=== PATIENT | male | born 1960 | race Caucasian/White ===

== ENCOUNTER 2019-06-04 17:57 | Emergency (ER) | payer OTHER ==
[~2019-06-04] VITALS: Ht 175.3 cm; Wt 74.8 kg
[~2019-06-04 17:57] MED LIST: AMPDEX15CR PO; Aspirin EC81 MG PO; BUDE10.22 INH; IBUP800 PO; LEVSOD75 PO; OMEP20ER PO; SENN187 PO; SUBOXONE 8 MG-1 EACH SL; TAMS.4ER PO; THERA1 EACH PO; TRAZ100 PO; VENLAFAXINE HCL75 MG PO; VITAMIN D31000 UNI1 PO; ZYRTEC10 M1 PO; Zofran4 MG PO
[2019-06-04 20:13] LABS: Alanine Aminotransfer (ALT/SGP 37 U/L (12-78); Albumin, Blood 4.1 g/dL (3.4-5.0); Albumin/Globulin Ratio 1.2 (0.8-1.8); Alk Phos 70 U/L (50-136); Anion Gap 9 mmol/L (6-16); Aspartate Aminotrans (AST/SGOT 52 U/L (12-37); Bilirubin, Total 0.9 mg/dL (0.1-1.0); Blood Urea Nitrogen 26 mg/dL (8-24); Bun/Creatinine Ratio 26.7 (12.0-20.0); CO2, Blood 24 mmol/L (21-32); Calcium, Blood 9.1 mg/dL (8.5-10.1); Chloride, Blood 105 mmol/L (98-108); Creatinine, Blood 0.98 mg/dL (0.60-1.20); Ethanol (Alcohol), Blood, Med <3 mg/dL; Globulin, Blood 3.4 g/dL (2.2-4.0); Glomerular Filtration Rate >60 (60-); Glucose, Blood 133 mg/dL (70-99); Potassium, Blood 4.1 mmol/L (3.5-5.5); Salicylate <1.7 mg/dL (2.8-20.0); Sodium, Blood 138 mmol/L (136-145); Total Protein, Blood 7.5 g/dL (6.4-8.2)
[2019-06-04 20:17] LABS: Acetaminophen, Random <2.0 ug/mL (10.0-30.0)
[2019-06-04 20:52] LABS: BASOPHILS ABSOLUTE AUTO 0.04 K/mm3 (0.00-0.23); BASOPHILS PERCENT AUTO 0 % (0-2); EOSINOPHILS ABSOLUTE AUTO 0.08 K/mm3 (0.00-0.68); EOSINOPHILS PERCENT AUTO 1 % (0-6); Hematocrit 44.1 % (37.0-53.0); Hemoglobin 14.5 g/dL (13.5-17.5); IMMATURE GRAN ABSOLUTE AUTO 0.05 K/mm3 (0.00-0.10); IMMATURE GRAN PERCENT AUTO 0 % (0-1); LYMPHOCYTES ABSOLUTE AUTO 4.11 K/mm3 (0.84-5.20); LYMPHOCYTES PERCENT AUTO 29 % (21-46); MONOCYTES PERCENT AUTO 10 % (4-13); Mean Corpuscular HGB Conc 32.9 g/dL (31.5-36.5); Mean Corpuscular Volume 91 fL (80-100); Mean Platelet Volume 10.8 fL (9.1-12.4); NEUTROPHILS ABSOLUTE AUTO 8.57 K/mm3 (1.96-9.15); NEUTROPHILS PERCENT AUTO 60 % (41-73); Platelet Count 208 K/mm3 (150-400); RDW Coefficient Variation 12.8 % (11.7-14.2); RDW Standard Deviation 42.3 fL (35.1-46.3); Red Blood Cell Count 4.83 M/mm3 (4.30-5.90); White Blood Cell Count 14.25 K/mm3 (4.00-11.30)
[2019-06-04 21:07] LABS: Source, Urine Clean Catch
[2019-06-04 21:09] LABS: Bilirubin, Urine Neg (Neg); Blood, Urine Neg (Neg); Glucose Qualitative, Urine Neg (Neg); Ketones, Urine 1+ (Neg); Leukocyte Esterase, Urine 1+ (Neg); Nitrite, Urine Neg (Neg); Protein, Urine 2+ (Neg); Urobilinogen, Urine 1+ (Normal)
[2019-06-04 21:15] LABS: U Amphetamine Screen DETECTED; U Barbituate Screen Not Detected; U Benzodiazapine Screen Not Detected; U Buprenorphine Screen DETECTED; U Cannabinoids Screen Not Detected; U Cocaine Screen Not Detected; U Methadone Screen Not Detected; U Methamphetamine Screen DETECTED; U Opiates Screen Not Detected; U Oxycodone Screen Not Detected; U Phencyclidine Screen Not Detected; U Propoxyphene Screen Not Detected
[2019-06-04 21:17] LABS: Appearance, Urine Clear (Clear); Color, Urine Yellow (P-Yellow)
[2019-06-04 21:19] LABS: Red Blood Cells, Urine Not Seen /hpf (0-2)
[2019-06-04 21:20] LABS: Squamous Epithelial Cells Rare /hpf (Few)
[2019-06-04 21:21] LABS: Bacteria Mod /hpf; Hyaline Casts 0-2 /lpf (0-2); Mucus Light (0-Heavy)
== END 2019-06-04 22:10 ==
LOC: ER 17:57
PROVIDERS: Physician Assistant
DX: R45.851 Suicidal ideations (principal); F41.9 Anxiety disorder, unspecified; F17.210 Nicotine dependence, cigarettes, uncomplicated; Z88.0 Allergy status to penicillin; Z91.013 Allergy to seafood; Z88.8 Allergy status to other drugs, medicaments and biological substances; Z79.899 Other long term (current) drug therapy
CPT/HCPCS: 36415; 80053; 81001; 84443; 85025; 99285; G0480

== ENCOUNTER 2019-07-11 03:20 | Inpatient (IN) | payer OTHER ==
[~2019-07-11] VITALS: Ht 175.3 cm; Wt 66.8 kg
[2019-07-11 04:31] LABS: BASOPHILS ABSOLUTE AUTO 0.02 K/mm3 (0.00-0.23); BASOPHILS PERCENT AUTO 0 % (0-2); EOSINOPHILS ABSOLUTE AUTO 0.08 K/mm3 (0.00-0.68); EOSINOPHILS PERCENT AUTO 1 % (0-6); Hematocrit 43.2 % (37.0-53.0); Hemoglobin 13.8 g/dL (13.5-17.5); IMMATURE GRAN ABSOLUTE AUTO 0.02 K/mm3 (0.00-0.10); IMMATURE GRAN PERCENT AUTO 0 % (0-1); LYMPHOCYTES ABSOLUTE AUTO 2.19 K/mm3 (0.84-5.20); LYMPHOCYTES PERCENT AUTO 26 % (21-46); MONOCYTES ABSOLUTE AUTO 0.62 K/mm3 (0.16-1.47); MONOCYTES PERCENT AUTO 7 % (4-13); Mean Corpuscular HGB 29.6 pg (26.0-34.0); Mean Corpuscular HGB Conc 31.9 g/dL (31.5-36.5); Mean Corpuscular Volume 93 fL (80-100); Mean Platelet Volume 10.8 fL (9.1-12.4); NEUTROPHILS ABSOLUTE AUTO 5.58 K/mm3 (1.96-9.15); NEUTROPHILS PERCENT AUTO 66 % (41-73); Platelet Count 129 K/mm3 (150-400); RDW Coefficient Variation 12.9 % (11.7-14.2); RDW Standard Deviation 43.8 fL (35.1-46.3); Red Blood Cell Count 4.66 M/mm3 (4.30-5.90); White Blood Cell Count 8.51 K/mm3 (4.00-11.30)
[2019-07-11 04:48] LABS: Alanine Aminotransfer (ALT/SGP 78 U/L (12-78); Albumin, Blood 3.3 g/dL (3.4-5.0); Alk Phos 54 U/L (50-136); Anion Gap 5 mmol/L (6-16); Aspartate Aminotrans (AST/SGOT 41 U/L (12-37); Bilirubin, Total 0.6 mg/dL (0.1-1.0); Blood Urea Nitrogen 15 mg/dL (8-24); Bun/Creatinine Ratio 19.4 (12.0-20.0); CO2, Blood 29 mmol/L (21-32); Calcium, Blood 8.6 mg/dL (8.5-10.1); Chloride, Blood 109 mmol/L (98-108); Creatinine, Blood 0.77 mg/dL (0.60-1.20); Globulin, Blood 3.3 g/dL (2.2-4.0); Glomerular Filtration Rate >60 (60-); Glucose, Blood 93 mg/dL (70-99); Potassium, Blood 3.6 mmol/L (3.5-5.5); Sodium, Blood 143 mmol/L (136-145); Total Protein, Blood 6.6 g/dL (6.4-8.2); Troponin I <0.015 ng/mL (0.000-0.040)
--- NOTE | 2019-07-11 13:09 | NUR ---
ADMISSION ASSESSMENT DONE UNDER SHIFT ASSESSMENT.
--- NOTE | 2019-07-11 17:51 | NUR ---
ALERT. ORIENTED. AMBULATORY W/STEADY GAIT TO BATHROOM. KNOWS TO USE URINAL FOR MEASUREMENT. STS FEELING BETTER FROM THIS A.M., BUT VERY ANXIOUS. POLITE. COOPERATIVE. TELE ON AND SHOWING SR. HAD ECHO. IV PATENT. NO ACUTE CHANGES. WCTM
--- NOTE | 2019-07-12 03:54 | NUR ---
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 On IV lasix and voids large amts of clear yellow urine. Smoking and substance abuse cessation encouraged. on Tele monitor sinus or bradycardia. Echo showed severe lt atrial dilation possible & ejection fx 55%. CXR showed intersitial pulmonary edema with bilat pleural effusions.
[2019-07-12 05:12] LABS: Anion Gap 4 mmol/L (6-16); Blood Urea Nitrogen 17 mg/dL (8-24); Bun/Creatinine Ratio 17.9 (12.0-20.0); CO2, Blood 33 mmol/L (21-32); Calcium, Blood 9.1 mg/dL (8.5-10.1); Chloride, Blood 106 mmol/L (98-108); Creatinine, Blood 0.95 mg/dL (0.60-1.20); Glomerular Filtration Rate >60 (60-); Glucose, Blood 103 mg/dL (70-99); Potassium, Blood 3.8 mmol/L (3.5-5.5); Sodium, Blood 143 mmol/L (136-145)
--- NOTE | 2019-07-12 19:03 | NUR ---
ALERT. ORIENTED. UNLABORED RESPIRATIONS. AMBULATED MULTIPLE TIMES IN HALLWAY , STEADY GAIT. PLEASANT. COOPERATIVE. TELE ON. NO ACUTE CHANGES. WCTM
--- NOTE | 2019-07-13 04:48 | NUR ---
PT ADMITTED WITH CHF AFTER RELAPSE ON METH PT SAYS HE HAD 4 YEARS SOBRITY PRIOR TO 3 DAYS OF METH USE. HE IS QUIET AND POLITE COOPERATIVE. [facility] PT HAS BEEN ON SUBOXONE TO TX ADDICTION. COOPERATIVE WITH MEDS AND TREATMENTS.
[2019-07-13] MEDS ORDERED: FURO40 PO (09:04)
[2019-07-13] MEDS ORDERED: VENL75ER PO (09:04)
--- NOTE | 2019-07-13 09:48 | NUR ---
SUMMARY/DISCHARGE PT DISCHARGED TO HOME, PT VERBALIZED UNDERSTANDING OF DISCHARGE INSTRUCTIONS WITH MEDICATIONS AND FOLLOW UP, PT TAKEN OUT SAFELY VIA WHEELCHAIR
== END 2019-07-13 09:38 | disposition home or self-care (01) | DRG 291 ==
LOC: ER 03:20 → MEDS 03:21 → ENPENDDIS 07-13 08:25 → MEDS 07-13 09:38
PROVIDERS: Emergency Medicine; ADMIT Internal Medicine
DX: I50.33 Acute on chronic diastolic (congestive) heart failure (principal); J96.01 Acute respiratory failure with hypoxia; C81.90 Hodgkin lymphoma, unspecified, unspecified site; K21.9 Gastro-esophageal reflux disease without esophagitis; J44.9 Chronic obstructive pulmonary disease, unspecified; F19.10 Other psychoactive substance abuse, uncomplicated; F43.10 Post-traumatic stress disorder, unspecified; E89.0 Postprocedural hypothyroidism; F17.210 Nicotine dependence, cigarettes, uncomplicated; F41.9 Anxiety disorder, unspecified
CPT/HCPCS: 36415; 71046; 80048; 80053; 83880; 84484; 85025; 93005; 93010; 93306; 94640; 94760; 96372; 96374; 96376; 98960; 99285-25; G0378; J1650; J1940

== ENCOUNTER 2019-08-24 21:18 | Observation (INO) | payer OTHER ==
[~2019-08-24] VITALS: Ht 175.3 cm; Wt 63.5 kg
[~2019-08-24 21:18] MED LIST changes: +FURO40 PO; +ONDA4ODT MM; +VENL75ER PO
[2019-08-24 22:03] LABS: Source, Urine Clean Catch
[2019-08-24 22:08] LABS: Bilirubin, Urine Neg (Neg); Blood, Urine Neg (Neg); Glucose Qualitative, Urine Neg (Neg); Ketones, Urine 3+ (Neg); Leukocyte Esterase, Urine Neg (Neg); Nitrite, Urine Neg (Neg); Protein, Urine Neg (Neg); Specific Gravity, Urine 1.015 (1.003-1.022); Urobilinogen, Urine NORM (Normal)
[2019-08-24 22:13] LABS: Appearance, Urine Clear (Clear); Color, Urine Yellow (P-Yellow)
[2019-08-24 22:26] LABS: U Amphetamine Screen DETECTED; U Barbituate Screen Not Detected; U Benzodiazapine Screen Not Detected; U Buprenorphine Screen Not Detected; U Cannabinoids Screen Not Detected; U Cocaine Screen Not Detected; U Methadone Screen Not Detected; U Methamphetamine Screen Not Detected; U Opiates Screen Not Detected; U Oxycodone Screen Not Detected; U Phencyclidine Screen Not Detected; U Propoxyphene Screen Not Detected
[2019-08-24 23:38] LABS: BASOPHILS ABSOLUTE AUTO 0.03 K/mm3 (0.00-0.23); BASOPHILS PERCENT AUTO 0 % (0-2); EOSINOPHILS PERCENT AUTO 0 % (0-6); Hematocrit 49.4 % (37.0-53.0); Hemoglobin 16.5 g/dL (13.5-17.5); IMMATURE GRAN ABSOLUTE AUTO 0.03 K/mm3 (0.00-0.10); IMMATURE GRAN PERCENT AUTO 0 % (0-1); LYMPHOCYTES ABSOLUTE AUTO 1.71 K/mm3 (0.84-5.20); LYMPHOCYTES PERCENT AUTO 14 % (21-46); MONOCYTES ABSOLUTE AUTO 0.33 K/mm3 (0.16-1.47); MONOCYTES PERCENT AUTO 3 % (4-13); Mean Corpuscular HGB 28.7 pg (26.0-34.0); Mean Corpuscular HGB Conc 33.4 g/dL (31.5-36.5); Mean Corpuscular Volume 86 fL (80-100); Mean Platelet Volume 10.9 fL (9.1-12.4); NEUTROPHILS ABSOLUTE AUTO 10.24 K/mm3 (1.96-9.15); NEUTROPHILS PERCENT AUTO 83 % (41-73); Platelet Count 188 K/mm3 (150-400); RDW Coefficient Variation 12.1 % (11.7-14.2); RDW Standard Deviation 38.4 fL (35.1-46.3); Red Blood Cell Count 5.74 M/mm3 (4.30-5.90); White Blood Cell Count 12.34 K/mm3 (4.00-11.30)
[2019-08-25 00:02] LABS: Ethanol (Alcohol), Blood, Med <3 mg/dL; Salicylate <1.7 mg/dL (2.8-20.0)
[2019-08-25 00:03] LABS: Alanine Aminotransfer (ALT/SGP 24 U/L (12-78); Albumin/Globulin Ratio 1.1 (0.8-1.8); Alk Phos 66 U/L (50-136); Anion Gap 8 mmol/L (6-16); Aspartate Aminotrans (AST/SGOT 24 U/L (12-37); Bilirubin, Total 0.7 mg/dL (0.1-1.0); Blood Urea Nitrogen 13 mg/dL (8-24); Bun/Creatinine Ratio 14.7 (12.0-20.0); CO2, Blood 29 mmol/L (21-32); Calcium, Blood 8.9 mg/dL (8.5-10.1); Chloride, Blood 103 mmol/L (98-108); Creatinine, Blood 0.89 mg/dL (0.60-1.20); Globulin, Blood 3.7 g/dL (2.2-4.0); Glomerular Filtration Rate >60 (60-); Glucose, Blood 124 mg/dL (70-99); Potassium, Blood 3.7 mmol/L (3.5-5.5); Sodium, Blood 140 mmol/L (136-145); Total Protein, Blood 7.7 g/dL (6.4-8.2)
[2019-08-25 00:07] LABS: Thyroid Stimulating Hormone 0.622 uIU/mL (0.360-4.800)
[2019-08-25 00:12] LABS: Acetaminophen, Random <2.0 ug/mL (10.0-30.0)
== END 2019-08-25 10:30 ==
LOC: ER 21:18 → EOR 21:19
PROVIDERS: ADMIT Emergency Medicine
DX: R45.851 Suicidal ideations (principal); F17.210 Nicotine dependence, cigarettes, uncomplicated; I50.9 Heart failure, unspecified; J44.9 Chronic obstructive pulmonary disease, unspecified; E03.9 Hypothyroidism, unspecified; F41.9 Anxiety disorder, unspecified; F43.10 Post-traumatic stress disorder, unspecified; F11.23 Opioid dependence with withdrawal; Z88.0 Allergy status to penicillin; Z88.8 Allergy status to other drugs, medicaments and biological substances; Z79.899 Other long term (current) drug therapy
CPT/HCPCS: 36415; 80053; 81003; 83690; 84443; 85025; 96374; 96375; 96376; 99285-25; G0378; G0480; J1630; J2405; J3010; Q3014

== ENCOUNTER 2020-10-06 23:28 | Inpatient (IN) | payer OTHER ==
[~2020-10-06] VITALS: Ht 175.3 cm; Wt 65.8 kg
[2020-10-07] MEDS ORDERED: SUBOXONE 8 MG-1 EACH SL (00:12)
[2020-10-07] MEDS ORDERED: TRAZ100 PO (00:12)
[2020-10-07] MEDS ORDERED: AMPDEX10CR PO (00:12)
[2020-10-07 01:14] LABS: BASOPHILS ABSOLUTE AUTO 0.03 K/mm3 (0.00-0.23); BASOPHILS PERCENT AUTO 0 % (0-2); EOSINOPHILS ABSOLUTE AUTO 0.09 K/mm3 (0.00-0.68); EOSINOPHILS PERCENT AUTO 1 % (0-6); Hematocrit 48.9 % (37.0-53.0); IMMATURE GRAN ABSOLUTE AUTO 0.06 K/mm3 (0.00-0.10); IMMATURE GRAN PERCENT AUTO 1 % (0-1); LYMPHOCYTES ABSOLUTE AUTO 1.96 K/mm3 (0.84-5.20); LYMPHOCYTES PERCENT AUTO 19 % (21-46); MONOCYTES ABSOLUTE AUTO 0.84 K/mm3 (0.16-1.47); MONOCYTES PERCENT AUTO 8 % (4-13); Mean Corpuscular HGB 28.8 pg (26.0-34.0); Mean Corpuscular HGB Conc 34.8 g/dL (31.5-36.5); Mean Corpuscular Volume 83 fL (80-100); Mean Platelet Volume 10.7 fL (9.1-12.4); NEUTROPHILS PERCENT AUTO 72 % (41-73); Platelet Count 194 K/mm3 (150-400); RDW Coefficient Variation 12.3 % (11.7-14.2); RDW Standard Deviation 37.4 fL (35.1-46.3); White Blood Cell Count 10.58 K/mm3 (4.00-11.30)
[2020-10-07 01:34] LABS: Alanine Aminotransfer (ALT/SGP 24 U/L (12-78); Albumin, Blood 4.2 g/dL (3.4-5.0); Albumin/Globulin Ratio 1.2 (0.8-1.8); Alk Phos 87 U/L (50-136); Anion Gap 6 mmol/L (6-16); Aspartate Aminotrans (AST/SGOT 22 U/L (12-37); Bilirubin, Total 0.9 mg/dL (0.1-1.0); Blood Urea Nitrogen 25 mg/dL (8-24); Bun/Creatinine Ratio 31.2 (12.0-20.0); CO2, Blood 29 mmol/L (21-32); Calcium, Blood 9.9 mg/dL (8.5-10.1); Chloride, Blood 103 mmol/L (98-108); Globulin, Blood 3.6 g/dL (2.2-4.0); Glomerular Filtration Rate >60 (60-); Glucose, Blood 140 mg/dL (70-99); Potassium, Blood 3.5 mmol/L (3.5-5.5); Sodium, Blood 138 mmol/L (136-145); Total Protein, Blood 7.8 g/dL (6.4-8.2)
[2020-10-07] MEDS ORDERED: TAMS.4ER PO (04:33)
--- NOTE | 2020-10-07 04:34 | NUR ---
PT ARRIVED TO FLOOR FROM ER. PT ALERT, ANXIOUS UPON ARRIVAL. PT REP ABD PAIN 3/10. ABD SOFT TO PALP, MILDLY DISTENDED, BT ACTIVE; PT REP TENDERNESS IN MID ABD. PT REP PREV EPISODES OF N/V. REP NO FLATUS RECENTLY, LAST BM 4-5 DAYS AGO. PT REP UNABLE TO DAMARI NGT, REQ NOT TO HAVE ANY FURTHER ATTEMPTS AT THIS TIME. PT ORIENTED TO ROOM/CALL LIGHT. DR GARCÍA IN ROOM TO ASSESS PT. WILL AWAIT ORDERS.
--- NOTE | 2020-10-07 07:27 | NUR ---
PT HAD NO CHANGES SINCE ARRIVING TO FLOOR. PT MED FOR PAIN AND NAUSEA X1. IVF STARTED THIS AM. PT NPO PER ORDERS. AWAITING SURGERY CONSULT.
--- NOTE | 2020-10-07 09:01 | NUR ---
PT IS SLEEPY, DENIES ANY NEED FOR PAIN MEDS AT THIS TIME, DENIES ANY NAUSEA, CONT. TO REFUSE NGT, AWAITING SURGICAL CONSULT, CONT. TO MONITOR FOR ANY CHANGES.
[2020-10-07 12:33] LABS: BASOPHILS ABSOLUTE AUTO 0.03 K/mm3 (0.00-0.23); BASOPHILS PERCENT AUTO 0 % (0-2); EOSINOPHILS ABSOLUTE AUTO 0.01 K/mm3 (0.00-0.68); EOSINOPHILS PERCENT AUTO 0 % (0-6); Hemoglobin 16.9 g/dL (13.5-17.5); IMMATURE GRAN ABSOLUTE AUTO 0.05 K/mm3 (0.00-0.10); IMMATURE GRAN PERCENT AUTO 0 % (0-1); LYMPHOCYTES ABSOLUTE AUTO 1.42 K/mm3 (0.84-5.20); LYMPHOCYTES PERCENT AUTO 11 % (21-46); MONOCYTES ABSOLUTE AUTO 0.53 K/mm3 (0.16-1.47); MONOCYTES PERCENT AUTO 4 % (4-13); Mean Corpuscular HGB 28.4 pg (26.0-34.0); Mean Corpuscular HGB Conc 34.5 g/dL (31.5-36.5); Mean Corpuscular Volume 82 fL (80-100); Mean Platelet Volume 10.7 fL (9.1-12.4); NEUTROPHILS ABSOLUTE AUTO 11.19 K/mm3 (1.96-9.15); NEUTROPHILS PERCENT AUTO 85 % (41-73); Platelet Count 167 K/mm3 (150-400); RDW Coefficient Variation 12.3 % (11.7-14.2); RDW Standard Deviation 37.4 fL (35.1-46.3); Red Blood Cell Count 5.96 M/mm3 (4.30-5.90); White Blood Cell Count 13.23 K/mm3 (4.00-11.30)
[2020-10-07 13:05] LABS: Alanine Aminotransfer (ALT/SGP 26 U/L (12-78); Albumin, Blood 3.8 g/dL (3.4-5.0); Albumin/Globulin Ratio 1.1 (0.8-1.8); Alk Phos 78 U/L (50-136); Anion Gap 7 mmol/L (6-16); Aspartate Aminotrans (AST/SGOT 27 U/L (12-37); Bilirubin, Total 0.8 mg/dL (0.1-1.0); Blood Urea Nitrogen 21 mg/dL (8-24); Bun/Creatinine Ratio 31.4 (12.0-20.0); CO2, Blood 26 mmol/L (21-32); Calcium, Blood 8.6 mg/dL (8.5-10.1); Chloride, Blood 105 mmol/L (98-108); Creatinine, Blood 0.67 mg/dL (0.60-1.20); Globulin, Blood 3.4 g/dL (2.2-4.0); Glomerular Filtration Rate >60 (60-); Glucose, Blood 130 mg/dL (70-99); Potassium, Blood 3.6 mmol/L (3.5-5.5); Sodium, Blood 138 mmol/L (136-145); Total Protein, Blood 7.2 g/dL (6.4-8.2)
[2020-10-07 16:10] LABS: U Amphetamine Screen DETECTED; U Barbituate Screen Not Detected; U Benzodiazapine Screen Not Detected; U Buprenorphine Screen DETECTED; U Cannabinoids Screen Not Detected; U Cocaine Screen Not Detected; U Methadone Screen Not Detected; U Methamphetamine Screen Not Detected; U Opiates Screen DETECTED; U Oxycodone Screen Not Detected; U Phencyclidine Screen Not Detected; U Propoxyphene Screen Not Detected
--- NOTE | 2020-10-07 17:44 | NUR ---
SUMMARY PT HAS BEEN SLEEPING MOST OF THE DAY, ONLY WAKES UP TO ASK FOR PAIN MEDS, CONT. TO C/O 5/ ABD PAIN, STATES HE DOESN'T REMEMEBER THE LAST 3 DAYS EXCEPT HE REMEMBERS COMING INTO THE ED AND ATTEMPTED NGT PLACEMENT, WOKE UP AGITATED THIS AFTERNOON, WANTING TO EAT, AND WORRIED ABOUT GOING TO WORK TOMORROW, STATES HE PASSED GAS AND HAD A SMALL BM, A VERY SMALL HARD STOOL NOTED IN TOILET, DR. KAY NOTIFIED, OK'D FOR PT TO HAVE SMALL AMOUNTS OF CLEAR LIQUIDS, EXPLAINED TO PT PLAN FOR SBFT TOMORROW, AND ANSWERED QUESTIONS, PT STATES HE UNDERSTANDS AND IS WILLING TO STAY, NO ACUTE CHANGES THIS SHIFT.
--- NOTE | 2020-10-08 08:19 | NUR ---
SUMMARY PT INTERMITTENTLY HAS BEEN ANXIOUS AND FRUSTRATED WITH BEING IN HOSPITAL HAD LARGE BM AND PASSING FLATUS WITH NO C/O PAIN.TOLERATING PO CLR LIQ. WENT TO XRAY THIS AM FOR SBFT, BUT I REEIVED CALL STATING PT GOT DOWN TO DEPT AND REFUSED GASTROGRAFFIN.WANTS TO TALK WITH DR. KAY.DAY [employer] [facility]ER CONTACTING DR KAY FOR PT.
--- NOTE | 2020-10-08 10:45 | NUR ---
DISCHARGE SUMMARY PT A&OX4, VSS, VOIDING WELL, DENIES PAIN, DENIES N&V, AMBULATING HALLWAYS, VERY ANXIOUS AND VOICING NEEDING TO LEAVE(DR LOCKHART), HOSPITALIST AND SURGEON HAVE BEEN IN TO SEE PT. PT LEFT AMA AT 1030. CALLED CAB TO MEET PT AT [facility], PT PAY.
== END 2020-10-08 13:55 | disposition left against medical advice (07) | DRG 389 ==
LOC: ER 23:28 → SURS 10-07 02:31
PROVIDERS: Physician Assistant; ADMIT Internal Medicine
PROC: 0D9670Z Drainage of Stomach with Drainage Device, Via Natural or Artificial Opening (ICD-10-PCS; principal; 2020-10-07)
DX: K56.609 Unspecified intestinal obstruction, unspecified as to partial versus complete obstruction (principal); C81.90 Hodgkin lymphoma, unspecified, unspecified site; J44.9 Chronic obstructive pulmonary disease, unspecified; F43.10 Post-traumatic stress disorder, unspecified; I50.9 Heart failure, unspecified; F17.210 Nicotine dependence, cigarettes, uncomplicated; Z53.29 Procedure and treatment not carried out because of patient's decision for other reasons; Z85.038 Personal history of other malignant neoplasm of large intestine; Z85.850 Personal history of malignant neoplasm of thyroid; Z88.0 Allergy status to penicillin
CPT/HCPCS: 36415; 74018; 74177; 80053; 83605; 83690; 85025; 94760; 96374; 96375; 99285-25; A9270; J1170; J1650; J2250; J2270; J2405; J3010; J7030; J7120; Q9967

== ENCOUNTER → 2022-01-28 | Outpatient (CLI) | payer OTHER ==
[~2022-01-28] MED LIST changes: +AMPDEX10CR PO
== END | disposition home or self-care (01) ==
LOC: PLD 12:49 → LAB SHORT 12:49
DX: L98.499 Non-pressure chronic ulcer of skin of other sites with unspecified severity (principal); L57.8 Other skin changes due to chronic exposure to nonionizing radiation
CPT/HCPCS: 88305; 88312

== ENCOUNTER 2022-04-16 08:17 | Day surgery (SDC) | payer OTHER, MEDICARE ==
--- NOTE | 2022-04-16 09:29 | NUR ---
PT ABLE TO AMBUATE W/O DIFFICULTY. PLACED ON SUPERVISOR SOAKERS, SR WITH BBB HR 58-60, BP WNL. PT. IV STARTED WITH ULTRASOUND TO RIGHT AC. AMBULATED TO CT TABLE.
--- NOTE | 2022-04-16 09:55 | NUR ---
SCAN COMPLETE, VSS UPON COMPLETION. IV REMOVED. PT AMBULATED TO DOOR.
== END 2022-04-16 22:49 | disposition home or self-care (01) ==
LOC: CT 08:17
DX: I50.32 Chronic diastolic (congestive) heart failure (principal); R06.02 Shortness of breath; Z88.0 Allergy status to penicillin
CPT/HCPCS: 75574; Q9967

== ENCOUNTER 2022-12-17 17:58 | Emergency (ER) | payer OTHER ==
[~2022-12-17] VITALS: Ht 175.3 cm; Wt 72.6 kg
[2022-12-17] MEDS ORDERED: Diovan320 MG (18:32)
[2022-12-17] MEDS ORDERED: TAMS.4ER PO (18:32)
[2022-12-17] MEDS ORDERED: COREG12.5 M1 PO (18:32)
[2022-12-17] MEDS ORDERED: Trazodone HCl300 MG PO (18:33)
[2022-12-17] MEDS ORDERED: AMPDEX30CR (18:33)
[2022-12-17] MEDS ORDERED: SUBOXONE 8 MG-1 EACH SL (18:33)
[2022-12-17] MEDS ORDERED: POTA10T PO (18:34)
[2022-12-17] MEDS ORDERED: TORSE20 PO (18:34)
[2022-12-17 18:54] LABS: BASOPHILS ABSOLUTE AUTO 0.03 K/mm3 (0.00-0.23); BASOPHILS PERCENT AUTO 0 % (0-2); EOSINOPHILS PERCENT AUTO 1 % (0-6); Hematocrit 40.9 % (37.0-53.0); Hemoglobin 14.3 g/dL (13.5-17.5); IMMATURE GRAN ABSOLUTE AUTO 0.01 K/mm3 (0.00-0.10); IMMATURE GRAN PERCENT AUTO 0 % (0-1); LYMPHOCYTES ABSOLUTE AUTO 3.24 K/mm3 (0.84-5.20); LYMPHOCYTES PERCENT AUTO 40 % (21-46); MONOCYTES ABSOLUTE AUTO 0.55 K/mm3 (0.16-1.47); MONOCYTES PERCENT AUTO 7 % (4-13); Mean Corpuscular Volume 86 fL (80-100); Mean Platelet Volume 11.4 fL (9.1-12.4); NEUTROPHILS ABSOLUTE AUTO 4.13 K/mm3 (1.96-9.15); NEUTROPHILS PERCENT AUTO 51 % (41-73); Platelet Count 184 K/mm3 (150-400); RDW Coefficient Variation 11.7 % (11.7-14.2); RDW Standard Deviation 37.2 fL (35.1-46.3); Red Blood Cell Count 4.76 M/mm3 (4.30-5.90); White Blood Cell Count 8.06 K/mm3 (4.00-11.30)
[2022-12-17 19:03] LABS: Source, Urine Clean Catch
[2022-12-17 19:04] LABS: Albumin, Blood 4.3 g/dL (3.4-5.0); Albumin/Globulin Ratio 1.4 (0.8-1.8); Bilirubin, Total 0.6 mg/dL (0.1-1.0); Bun/Creatinine Ratio 29.8 (12.0-20.0); Calcium, Blood 9.7 mg/dL (8.5-10.1); Creatinine, Blood 1.31 mg/dL (0.60-1.20); Globulin, Blood 3.1 g/dL (2.2-4.0); Potassium, Blood 3.6 mmol/L (3.5-5.5); Total Protein, Blood 7.4 g/dL (6.4-8.2)
[2022-12-17 19:09] LABS: Bilirubin, Urine Neg (Neg); Blood, Urine Neg (Neg); Glucose Qualitative, Urine Neg (Neg); Ketones, Urine Neg (Neg); Leukocyte Esterase, Urine Neg (Neg); Nitrite, Urine Neg (Neg); Protein, Urine Neg (Neg); Specific Gravity, Urine 1.015 (1.003-1.022); Urobilinogen, Urine NORM (Normal)
[2022-12-17 19:21] LABS: Appearance, Urine Clear (Clear); Color, Urine Pale Yellow (P-Yellow)
[2022-12-17 20:45] VITALS: BP 116/100
== END 2022-12-17 21:34 | disposition home or self-care (01) ==
LOC: ER 17:58
PROVIDERS: Emergency Medicine; Student in an Organized Health Care Education/Training Program
DX: R20.0 Anesthesia of skin (principal); R51.9 Headache, unspecified; I50.9 Heart failure, unspecified; J44.9 Chronic obstructive pulmonary disease, unspecified; F17.210 Nicotine dependence, cigarettes, uncomplicated; Z88.8 Allergy status to other drugs, medicaments and biological substances; Z88.0 Allergy status to penicillin; Z91.013 Allergy to seafood; Z79.899 Other long term (current) drug therapy
CPT/HCPCS: 70496; 70498; 80053; 81003; 83735; 84443; 85025; 93005; 93010; 99285-25; Q9967

== ENCOUNTER 2023-07-25 17:43 | Emergency (ER) | payer MEDICARE ==
[~2023-07-25] VITALS: Ht 175.3 cm; Wt 74.8 kg
[~2023-07-25 17:43] MED LIST changes: +AMPDEX30CR; +COREG12.5 M1 PO; +Diovan320 MG; +POTA10T PO; +TORSE20 PO; +Trazodone HCl300 MG PO
[2023-07-25 17:51] VITALS: BP 175/81
[2023-07-25] MEDS ORDERED: Ivermectin 3 MG Tab PO ONE (18:05)
[2023-07-25] MEDS ORDERED: IVERMECTIN3 MG PO (18:26)
== END 2023-07-25 18:57 | disposition home or self-care (01) ==
LOC: ER 17:43
DX: B86 Scabies (principal); F17.210 Nicotine dependence, cigarettes, uncomplicated; Z88.0 Allergy status to penicillin; Z88.8 Allergy status to other drugs, medicaments and biological substances; Z79.899 Other long term (current) drug therapy
CPT/HCPCS: 99282; A9270